=== PATIENT | female | born 1955 | race Caucasian/White ===

== ENCOUNTER 2016-12-24 12:57 | Outpatient (CLI) | payer MEDICARE, BC ==
--- NOTE | 2016-12-24 14:36 | RAD ---
LUMBAR SPINE RADIOGRAPHS 3 VIEWS: DATE: 12/24/16. PROVIDED CLINICAL HISTORY: Lumbar radiculopathy. FINDINGS: Five jhv-[id number]-[id number] lumbar-type vertebral bodies are noted. There is trace retrolisthesis of L2 on L3. This reduces in flexion and increases in extension. There is minimal retrolisthesis of L3 on L4 which does not appear to change with flexion and extension. Lumbar alignment appears otherwise n ormal. Bilateral pedicle screws and radiolucent vertical interconnecting rods span L3-4. Changes o f posterior fusion are seen at L4-5 with fusion across the disk space also seen. Vertebral body hei ghts appear preserved. Disk space narrowing is seen at L3-4. There is no evidence for hardware loo sening or migration. A dorsal column stimulator device is seen. IMPRESSION: Postoperative changes involving the lumbar spine as described above. POS: [facility]
--- NOTE | 2016-12-24 15:57 | CT ---
CT LUMBAR SPINE: HISTORY: A 61-year-old with a history of low back pain. COMPARISON: 11/15/2014 TECHNIQUE: Axial images are obtained with coronal and sagittal reconstructions. FINDINGS: T11-T12: Unremarkable. T12-L1: Unremarkable. There is a dorsal column stimulator, which enters the T12 and L1 interlaminar space. L1-L2: There is some disk space height loss. A broad-based disk bulge is seen. Bilateral facet an d ligamentum flavum hypertrophy is seen. This results in mild to moderate central and lateral reces s stenosis. The neural foramen are patent. L2-L3: There is some disk desiccation seen. Bilateral facet and ligamentum flavum hypertrophy is s een. Congenitally short pedicles are seen. There is a mild broad-based disk bulge seen. This over all results in moderate to severe L2-L3 spinal stenosis. L3: Bilateral pedicle screws are seen at the L3 level. L3-L4: Some disk space height loss is seen. There is a broad-based disk bulge with bilateral facet and ligamentum flavum hypertrophy resulting in a moderate degree of L3-L4 central and lateral reces s stenosis. L4-L5: The patient has had a previous L4 laminectomy. Pedicle screws have been removed at the L5 l evel. No significant evidence of bony spinal stenosis seen. Post surgical changes seen in the cent ral canal, at L4-L5. No definite evidence of neural foraminal narrowing is seen. Posterior lateral masses, which are fused, are visualized. L5-S1: The patient has had a previous left L5 laminotomy. The central canal was patent. The neura l foramen are also patent. No significant interval changes seen since the previous comparison CT fr om 2014. IMPRESSION: Multilevel lower lumbar fusion with central stenosis and facet hypertrophy at L2-L3 and at L3-L4. 1. POS: [facility]
== END 2016-12-24 12:58 | disposition home or self-care (01) ==
LOC: TBSIIMAG 12:57
PROVIDERS: ATTEND Neurological Surgery
DX: M54.16 Radiculopathy, lumbar region (principal); M43.26 Fusion of spine, lumbar region; M48.06 Spinal stenosis, lumbar region; Z98.1 Arthrodesis status
CPT/HCPCS: 72100; 72131

== ENCOUNTER 2017-03-26 10:33 | Outpatient (CLI) | payer MEDICARE, BC | END 2017-03-26 10:34 | disposition home or self-care (01) | LOC: LABBT 10:33 | PROVIDERS: ATTEND Neurological Surgery | DX: Z01.818 Encounter for other preprocedural examination (principal); M48.061 Spinal stenosis, lumbar region without neurogenic claudication | CPT/HCPCS: 93005; 93010 ==

== ENCOUNTER 2017-03-31 06:24 | Day surgery (SDC) | payer MEDICARE, BC ==
--- NOTE | 2017-03-31 01:03 | HP ---
HISTORY OF PRESENT ILLNESS: Ms. Gamboa is a 61-year-old woman known to us from previous ACD[facility] this year who returns now with severe lower back pain, buttock pain and hip pains with this onset roughly 4 months ago now. She has been treating this with over the counter pain medications with min imal relief and then ultimately had a single injection with Dr. Sethi which did not provide muc h relief either. She does have known several previous lumbar spine surgeries, most recently L4-L5 __ ___ with Dr. Villalpando that was placed in 2010. We are going to repeat CT scan that shows profound ad jacent level stenosis at L2-L3, that is very much the likely culprit of her symptoms. At this point, she would like to move forward with anything that is going to give her relief. PAST MEDICAL HISTORY: Significant for migraine headaches, gastroesophageal reflux, hypothyroidism, h yperlipidemia, anxiety, and back pain. CURRENT MEDICATIONS: Calcium, magnesium, Nexium, Synthroid, Vytorin, Flexeril, losartan, vitamin D, metoprolol, gabapentin. ALLERGIES: TETRACYCLINE, TRAMADOL, and ADHESIVE TAPE. PHYSICAL EXAMINATION: PSYCHIATRIC: Patient is alert and oriented x3. EXTREMITIES: She has tenderness over the bilateral SI joints. Straight leg raise is positive in lef t lower extremity and negative in right lower extremity. Gait is mildly antalgic. ASSESSMENT: Lumbar stenosis with neurogenic claudication. PLAN: Dr. Prieto met with the patient, reviewed imaging and ultimately advocated for L2-L3 decompress ion. He explained to the patient the risks, benefits, and alternatives to the procedure. The patien t expressed understanding and would like to move forward with surgery as discussed. I do believe the patient is mentally competent and capable of making decisions for herself and we will move forward w ith surgery as planned. Nino Fernando PA-C, dictating for Saravanan Prieto M.D.
[2017-03-31] MEDS ORDERED: CEFAZOLIN/Water 2 GM/20 ML SYRINGE ONE ×2 (06:39→13:36)
[2017-03-31] MEDS ORDERED: Sodium Chloride 0.9% 0 ML ONE (07:03)
[2017-03-31] MEDS ORDERED: Bupivacaine/Epinephrine 0.25% 30 ML VIAL ONE (07:03)
[2017-03-31] MEDS ORDERED: Thrombin 5000 UNITS/5 ML VIAL ONE (07:03)
[2017-03-31] MEDS ORDERED: Scopolamine 1.5 mg/72 hour Patch ONE (07:35)
[2017-03-31] MEDS ORDERED: Midazolam HCl 2 mg/2 ml Vial ONE (07:35)
[2017-03-31] MEDS ORDERED: Fentanyl 250 MCG/5 ML VIAL ONE (08:09)
[2017-03-31] MEDS ORDERED: Fentanyl 100 MCG/2 ML VIAL ONE (09:52)
--- NOTE | 2017-03-31 10:57 | OP ---
DATE OF OPERATION: 03/31/2017 SURGEON: Saravanan Prieto M.D. PARTY COORDINATOR: Supa Fernando PA-C. INDICATION: Pain. DIAGNOSIS: Lumbar stenosis. PROCEDURE: L2-L3 lumbar decompression. ANESTHESIA: General. TECHNIQUE: The patient was brought into the operating room and placed under general anesthesia. She was flipped from a supine to a prone position on the operating room table. A linear incision was pl anned over the L2-L3 segment. After prepping and draping and after an appropriate operative pause, t he incision was created. Soft tissues were swept away from midline. A self-retaining retractor was placed under the wound for optimal exposure. After confirming the appropriate level with C-arm fluor oscopy, an Adson rongeur was used to remove the spinous process along the inferior aspect of L2 and s uperior aspect of L3. A high-speed cutting drill bit as well as 2, 3, and 4-mm Kerrisons were then u sed to perform a laminectomy in order to decompress the central canal and lateral recesses. After co mplete decompression, the wound was irrigated. Hemostasis was maintained throughout. The wound was then closed in anatomic layers and a pressure dressing was applied. There were no known procedural c omplications.
[2017-03-31] MEDS ORDERED: Acetaminophen/Codeine 30-300mg Tablet ONE (11:15)
[2017-03-31] MEDS ORDERED: Ondansetron HCl/PF 4 MG/2 ML Vial ONE (13:03)
[2017-03-31] MEDS ORDERED: Glycopyrrolate 0.2 MG/ML 5 ML SYRINGE ONE (13:03)
[2017-03-31] MEDS ORDERED: Dexamethasone 20 MG/5 ML VIAL ONE (13:03)
[2017-03-31] MEDS ORDERED: PHENYLEPHRINE-NS 100 MCG/ML 10 ML SYRINGE ONE (13:03)
[2017-03-31] MEDS ORDERED: PROPOFOL 200 MG/20 ML VIAL ONE (13:03)
[2017-03-31] MEDS ORDERED: ePHEDrine/0.9% NaCl/PF SYRINGE 50 mg/10 ml ONE (13:03)
== END 2017-03-31 13:50 | disposition home or self-care (01) ==
LOC: SDC 06:24
PROVIDERS: ATTEND Neurological Surgery
PROC: 0ST20ZZ Resection of Lumbar Vertebral Disc, Open Approach (ICD-10-PCS; principal; 2017-03-31)
PROC: 00NY0ZZ Release Lumbar Spinal Cord, Open Approach (ICD-10-PCS; 2017-03-31)
DX: M48.061 Spinal stenosis, lumbar region without neurogenic claudication (principal); G43.909 Migraine, unspecified, not intractable, without status migrainosus; K21.9 Gastro-esophageal reflux disease without esophagitis; E03.9 Hypothyroidism, unspecified; E78.5 Hyperlipidemia, unspecified; F41.9 Anxiety disorder, unspecified; Z88.1 Allergy status to other antibiotic agents; Z88.5 Allergy status to narcotic agent; Z91.040 Latex allergy status; Z91.048 Other nonmedicinal substance allergy status; Z79.899 Other long term (current) drug therapy; Z98.1 Arthrodesis status
CPT/HCPCS: 76001; 96374; A4216; J1100; J2250; J2405; J2704; J3010

== ENCOUNTER 2017-07-01 13:40 | Outpatient (CLI) | payer MEDICARE, BC ==
--- NOTE | 2017-07-01 15:50 | CT ---
CT OF THE CERVICAL SPINE WITHOUT CONTRAST: INDICATION: Cervical radiculopathy with numbness in the right fingers. TECHNIQUE: Multiple CT images were obtained in the cervical spine without contrast. COMPARISON: CT myelogram dated 11/28/15. FINDINGS: Since the comparison examination, there has been interval performance of an ACDF spanning C6-C7. No appreciable loosening is grossly evident. The intervertebral cage projects in the expected position. Osseous central canal is preserved. No acute fracture or subluxation is noted. There is uncovertebral hypertrophy, particularly at C6-7, inducing at least moderate right osseous ne ural foraminal narrowing. This appears slightly more prominent than on the comparison examination. No additional area of osseous central canal or neural foraminal narrowing is evident. Lung apices are clear. Prevertebral soft tissues appear within normal limits. A few shotty-appearin g lymph nodes are seen within the soft tissues of the neck. The craniocervical junction appears with in normal limits. IMPRESSION: Postsurgical change of an anterior cervical diskectomy and fusion. There is interval development of some prominent uncovertebral hypertrophy on the right at C6-7 inducing at least moderate right osseou s neural foraminal narrowing. POS: [facility]
== END 2017-07-01 13:41 | disposition home or self-care (01) ==
LOC: TBSIIMAG 13:40
PROVIDERS: ATTEND Neurological Surgery
DX: M50.123 Cervical disc disorder at C6-C7 level with radiculopathy (principal); M99.81 Other biomechanical lesions of cervical region; Z98.1 Arthrodesis status
CPT/HCPCS: 72125

== ENCOUNTER 2017-08-27 06:47 | Day surgery (SDC) | payer MEDICARE, BC ==
[2017-08-27 07:44] VITALS: BP 145/97; TEMP 97.2
[2017-08-27] MEDS ORDERED: Ondansetron ODT 4 MG TAB ONE (08:55)
--- NOTE | 2017-08-27 10:32 | RAD ---
CERVICAL MYELOGRAM: HISTORY: Cervical radiculopathy. COMPARISON: 11/28/15. EXPOSURE: 0.7 minutes, 642.7 mGy*^m2. FINDINGS: Cervical spine radiograph demonstrates a cervical plate with transvertebral body screw at C6 and C7. No perihardware lucency. There is a prosthesis at C6-C7 disk space. Vertebral body height is maint ained. No fracture. Straightening of cervical cervical lordosis is noted. On the AP projection, th ere are degenerative changes of facets. TWO VIEWS LUMBAR SPINE KNURLING MACHINE TENDER RADIOGRAPH: There are bilateral transpedicular screws at L3 and L4. There are posterior changes with bone graft material at L4-L5 and L5-S1. There is fusion of the L4-L5 disk space. There is 2 mm of retrolisthes is of L2 upon L3 and 3 mm of retrolisthesis of L3 upon L4. Dorsal column stimulators are identified. Successful lumbar puncture for intrathecal contrast administration. A total of 9 cc of Isovue 300M c ontrast was administered intrathecally. The patient tolerated the procedure well. No immediate or p ostprocedure complication. TECHNIQUE: Consent was obtained to perform a lumbar puncture for a cervical myelogram. The patient's back was e valuated. The L1-L2 level was deemed appropriate. The skin was prepped and draped in sterile fashio n. 1% Lidocaine, buffered with sodium bicarbonate was used for local anesthesia. Under fluoroscopic guidance, a 22-gauge spinal needle was advanced into the CSF space. A total of 9 cc of Isovue 300M contrast was administered intrathecally. The patient tolerated the procedure well. No immediate or postprocedure complication. IMPRESSION: Technically successful lumbar puncture for intrathecal contrast administration. Please refer to post myelogram cervical spine CT for further detail. POS: [facility]
--- NOTE | 2017-08-27 11:10 | CT ---
POST MYELOGRAM CERVICAL SPINE CT: HISTORY: Cervical radiculopathy. Interval cervical fusion. COMPARISON: 11/28/2015 TECHNIQUE: A post myelogram cervical spine CT is performed in the axial plane. Reformatted images are submitted for interpretation. FINDINGS: There are bilateral transpedicular screws at C6 and C7. No perihardware lucency. There is a prosthe sis at the C6-C7 disk space. No spondylolisthesis or spondylosis. Vertebral body heights are mainta ined. No fracture. No prevertebral soft tissue swelling. No epidural hematoma. The visualized soft tissue neck structures, the upper mediastinum, and the lung apices are unremarkab le. C2-C3: No central canal stenosis. The neural foramina are patent. C3-C4: There is a broad-based disk osteophyte complex that abuts the thecal sac. The ventral subara chnoid space is still maintained. There is overall minimal central canal stenosis. There is right f acet hypertrophy. The neural foramina are patent. C4-C5: There is a central disk osteophyte complex that deforms the thecal sac. There is mild deform ity of the cervical cord. Overall mild central canal stenosis. The degree of central canal stenosis has not changed when compared to the previous examination. The neural foramina are patent. C5-C6: A broad-based disk osteophyte complex abuts the thecal sac. There is some flattening of the thecal sac. Minimal deformity of the left and right and hemicord. Mild central canal stenosis. Lef t facet hypertrophy. No significant foraminal stenosis. C6-C7: There is a broad-based disk osteophyte complex. No significant central canal stenosis. The neural foramina are mildly to moderately narrowed bilaterally. C7-T1: No significant disk osteophyte complex. No significant central canal stenosis. The neural f oramina are parent. IMPRESSION: 1. Interval placement of a cervical fusion at C6-C7. 2. No high grade central canal stenosis. 3. No high grade foraminal narrowing. 4. With regard to cervical fusion hardware, no evidence of complication or loosening. POS: [facility]
== END 2017-08-27 10:15 | disposition home or self-care (01) ==
LOC: RAD 06:47
PROVIDERS: ATTEND Neurological Surgery
PROC: B02B1ZZ Computerized Tomography (CT Scan) of Spinal Cord using Low Osmolar Contrast (ICD-10-PCS; principal; 2017-08-27)
DX: M54.12 Radiculopathy, cervical region (principal); Z98.1 Arthrodesis status; Z88.5 Allergy status to narcotic agent; Z91.040 Latex allergy status; Z91.048 Other nonmedicinal substance allergy status; Z79.899 Other long term (current) drug therapy
CPT/HCPCS: 62302; 72126; Q0162

== ENCOUNTER 2017-09-17 10:02 | Outpatient (CLI) | payer MEDICARE, BC | END 2017-09-17 10:03 | disposition home or self-care (01) | LOC: LABBT 10:02 | PROVIDERS: ATTEND Neurological Surgery | DX: Z01.810 Encounter for preprocedural cardiovascular examination (principal); M54.12 Radiculopathy, cervical region | CPT/HCPCS: 93005; 93010 ==

== ENCOUNTER 2017-09-24 05:47 | Day surgery (SDC) | payer MEDICARE, BC ==
[2017-09-17 10:26] VITALS: BMI 29.2
--- NOTE | 2017-09-23 23:28 | HP ---
HISTORY OF PRESENT ILLNESS: Mr. Gamboa is known to us for previous surgeries for lumbar and cervic al problems. She returns now for development of a C6 radiculopathy and she is in the setting of a ne w MRI that reveals adjacent segment disease above her previous C6-C7 ACDF, now at C5-6 causing likely attributing to the symptoms that she is experiencing. She hopes to move forward with surgery if pos sible. PAST MEDICAL HISTORY: Migraine headaches, gastroesophageal reflux, hypothyroidism, hyperlipidemia, a nxiety, and back pain. CURRENT MEDICATIONS: Calcium, magnesium, Nexium, Synthroid, Vytorin, Flexeril, losartan, metoprolol, and gabapentin. ALLERGIES: TETRACYCLINE, TRAMADOL, and ADHESIVES. PHYSICAL EXAMINATION: The patient is alert and oriented x3. Gait is normal, no ataxia. Upper extre mity motor exam is normal. Cervical range of motion is limited. ASSESSMENT: Cervical radiculopathy. PLAN: Dr. Prieto met with the patient, reviewed imaging and advocated for a C5-C6 ACDF. He explained to the patient the risks, benefits, and alternatives to the procedure. The patient expressed unders tanding and would like to move forward with surgery as discussed. I do believe the patient is mental ly competent and capable of making medical decisions for herself and we will move forward with surger y as planned. Nino Fernando PA-C, dictating for Dr. Prieto.
[2017-09-24] MEDS ORDERED: CEFAZOLIN/Water 2 GM/20 ML SYRINGE ONE ×2 (06:16→11:24)
[2017-09-24] MEDS ORDERED: Thrombin 5000 UNITS/5 ML VIAL ONE (06:17)
[2017-09-24] MEDS ORDERED: Midazolam HCl 2 mg/2 ml Vial ONE (06:32)
[2017-09-24] MEDS ORDERED: Fentanyl 100 MCG/2 ML VIAL ONE ×2 (06:33→08:40)
--- NOTE | 2017-09-24 08:59 | OP ---
DATE OF PROCEDURE: 09/24/2017 SURGEON: Saravanan Prieto M.D. MENTAL HEALTH COORDINATOR: HARINI Penny. INDICATION: Pain. DIAGNOSIS: Cervical radiculopathy, cervical spondylolisthesis. PROCEDURE: Removal of anterior instrumentation and anterior cervical diskectomy and fusion, C5-6. ANESTHESIA: General. TECHNIQUE: The patient was brought into the operating room and placed under general anesthesia. She was placed on the table in a supine position. A transverse incision was planned on the lateral aspe ct of the neck on the right. After prepping and draping and after an appropriate operative pause, th e incision was created. The underlying platysma muscles identified and incised. A blunt tissue plan e anterior to the sternocleidomastoid muscle was used to gain access to the prevertebral space. The patient's prior anterior instrumentation was identified and carefully removed. We then redirected ou r attention to the level above at C5-6 where an annulotomy was performed. All disk material as well as anterior and posterior osteophytes were removed. After complete decompression, a 7 mm lordotic PE EK cage packed with allograft and autograft material was placed in the interbody space. An anterior cervical plate was then fashioned in front of the spine and secured with a total of 4 fixed screws. Midline and lateral structures were then inspected and found to be free from significant trauma. The wound was irrigated. Hemostasis was maintained throughout. The wound was then closed in anatomic l wilks and a pressure dressing was applied. The procedure came to an end without complication.
[2017-09-24] MEDS ORDERED: Morphine 4 MG/ML VIAL ONE (09:18)
[2017-09-24] MEDS ORDERED: Ondansetron HCl/PF 4 MG/2 ML Vial ONE (10:34)
[2017-09-24] MEDS ORDERED: ePHEDrine/0.9% NaCl/PF SYRINGE 50 mg/10 ml ONE (10:34)
[2017-09-24] MEDS ORDERED: Lidocaine 1% PF 5 ML VIAL ONE (10:34)
[2017-09-24] MEDS ORDERED: Dexamethasone 20 MG/5 ML VIAL ONE (10:34)
[2017-09-24] MEDS ORDERED: Glycopyrrolate 0.2 MG/ML 5 ML SYRINGE ONE (10:34)
[2017-09-24] MEDS ORDERED: PROPOFOL 200 MG/20 ML VIAL ONE (10:34)
== END 2017-09-24 11:37 | disposition home or self-care (01) ==
LOC: SDC 05:47
PROVIDERS: ATTEND Neurological Surgery
PROC: 0RB30ZZ Excision of Cervical Vertebral Disc, Open Approach (ICD-10-PCS; principal; 2017-09-24)
PROC: 0RG1070 Fusion of Cervical Vertebral Joint with Autologous Tissue Substitute, Anterior Approach, Anterior Column, Open Approach (ICD-10-PCS; 2017-09-24)
PROC: 0RP104Z Removal of Internal Fixation Device from Cervical Vertebral Joint, Open Approach (ICD-10-PCS; 2017-09-24)
DX: M47.22 Other spondylosis with radiculopathy, cervical region (principal); E03.9 Hypothyroidism, unspecified; E78.5 Hyperlipidemia, unspecified; F41.9 Anxiety disorder, unspecified; K21.9 Gastro-esophageal reflux disease without esophagitis; Z88.5 Allergy status to narcotic agent; Z91.040 Latex allergy status; Z79.899 Other long term (current) drug therapy
CPT/HCPCS: 76001; 96374; C1713; C1776; J1100; J2001; J2250; J2270; J2405; J2704; J3010

== ENCOUNTER 2017-11-04 10:04 | Outpatient (CLI) | payer MEDICARE, BC ==
--- NOTE | 2017-11-04 10:31 | RAD ---
CERVICAL SPINE THREE VIEWS: History: Follow up surgery. Comparison: 09-03-16 FINDINGS: Since that examination the plate and screws at the C6-7 level have been removed and there is now a pl ate and screws at C5-6. Markers of disc implants are seen at the C5-6 and C6-7 levels, within the con fines of the disc levels. No soft tissue swelling. Degenerative facet changes are present. IMPRESSION: Post-operative changes of the spine. POS: [facility]
== END 2017-11-04 10:05 | disposition home or self-care (01) ==
LOC: TBSIIMAG 10:04
PROVIDERS: ATTEND Neurological Surgery
DX: M54.12 Radiculopathy, cervical region (principal); Z98.890 Other specified postprocedural states
CPT/HCPCS: 72040

== ENCOUNTER 2017-12-22 08:48 | Outpatient (CLI) | payer MEDICARE, BC ==
--- NOTE | 2017-12-22 10:54 | CT ---
CONTRAST ENHANCED CT IMAGES ABDOMEN AND PELVIS: HISTORY: Left upper quadrant pain. TECHNIQUE: Contrast enhanced CT images of the abdomen and pelvis were obtained after the administration of IV an d oral contrast. FINDINGS: Images demonstrate mid and lower lumbar surgical changes. A dorsal column stimulator is in place. The lung bases are unremarkable. No evidence of free intraperitoneal air is seen. The liver, in hepatic segment 3, and a second lesion noted in hepatic segment 6, contains hypodense a reas. These may represent possible cysts or hepatic masses. Correlation with sonography may be of u se. In addition, the gallbladder contains some areas of hyperdensity in the neck. This may represen t small gallstones in the gallbladder neck or may represent some area of mucosal enhancement. The spleen is unremarkable. Post surgical gastric sleeve changes seen in the stomach. There does appear to be a possible hiatal hernia, also associated with the gastric fundus. The pancreas is unremarkable. The adrenal glands and kidneys are unremarkable. The loops of small b owel are unremarkable. The colon contains a moderate amount of stool. No evidence of periaortic lymphadenopathy is seen. The uterus has been surgically removed. IMPRESSION: 1. Lesions noted in the liver, possibly cysts. Correlate with sonography to confirm. 2. Possible gallbladder neck calculi. Begin correlation with sonography recommended. 3. Hiatal hernia with gastric surgical changes. POS: [facility]
[2017-12-22] MEDS ORDERED: ISOVUE-370 76%-LOCM 1 ML ONE (14:05)
== END 2017-12-22 08:49 | disposition home or self-care (01) ==
LOC: CT 08:48
PROVIDERS: ATTEND Family Medicine
DX: R10.9 Unspecified abdominal pain (principal); R11.0 Nausea; K76.9 Liver disease, unspecified; K44.9 Diaphragmatic hernia without obstruction or gangrene; Z98.890 Other specified postprocedural states
CPT/HCPCS: 74177; 82565

== ENCOUNTER 2017-12-29 10:37 | Outpatient (CLI) | payer MEDICARE, BC ==
--- NOTE | 2017-12-29 13:47 | ULT ---
RIGHT UPPER QUADRANT ULTRASOUND: Date: 12/29/17 HISTORY: Abdominal pain. FINDINGS: There is a 1.5 x 1.3 x 1.5 cm echogenic lesion in the left lobe of the liver suspicious for hemangiom a. No intra or extrahepatic biliary ductal dilatation is seen. The common duct measures 4.0 mm in jovanny meter. The right kidney and visualized portions of the pancreas (tail not visualized) are normal. Mul tiple mobile echogenic foci without shadowing are seen in the gallbladder. No gallbladder wall thicke grant or pericholecystic fluid is seen. No free fluid is seen in Morison's pouch. IMPRESSION: 1. Gallbladder sludge versus nonshadowing calculi. 2. Probable hemangioma of the left lobe of the liver (1.5 x 1.3 x 1.5 cm). Confirmation with technet ium-99m labeled RBC scan is recommended. POS: [facility]
== END 2017-12-29 10:38 | disposition home or self-care (01) ==
LOC: SCSULT 10:37
PROVIDERS: ATTEND Family Medicine
DX: R10.84 Generalized abdominal pain (principal)
CPT/HCPCS: 76705

== ENCOUNTER 2019-08-03 12:58 | Outpatient (CLI) | payer MEDICARE, BC ==
--- NOTE | 2019-08-03 13:47 | CT ---
Exam: Lumbar spine CT without contrast Comparison 12/24/2016 HISTORY: Lumbar radiculopathy. Previous lumbar fusion. Back pain x3-4 weeks. Radiation of pain down t o the thighs FINDINGS: 5 lumbar type vertebra. Lumbar spine vertebral body height is maintained. There is no fracture. There are bilateral transpedicular screws at L3 and L4 without perihardware lucency. There is extensive bone graft material in the posterior elements starting at the L3 level and extending to the L5 level. There is a prosthetic disc at the L4-L5 disc space. Visualized solid organs do not demonstrate any acute abnormality. Bariatric surgical changes are note d. Visualized canal is grossly unremarkable. Symmetric attenuation of the paraspinal muscles. Symmetric atrophy of the posterior paravertebral mus cles. Dorsal column stimulator enters the thecal sac at the T12-L1 disc space. There does not appear to be an associated generator. Limited evaluation of the contents of the central spinal canal and neural foramina due to technique Spondylolisthesis: 3.3 mm of retrolisthesis of L4 to upon L3, 3.0 mm retrolisthesis of L3 upon L4 There are tracks from previous bilateral transpedicular screws at L5 and S1. T11-T12: Mild central canal stenosis. Patent neural foramina T12-L1: No significant central canal stenosis. Patent neural foramina L1-L2: Broad-based disc bulge abuts the thecal sac. No significant central canal stenosis. Neural for perez are mildly narrowed due to disc material L2-L3: Posterior laminectomy defect. Broad-based disc bulge with at least mild central canal stenosis . Moderate bilateral foraminal narrowing. L3-L4: Broad-based disc bulge, facet hypertrophy result in moderate central canal stenosis. Moderate bilateral neural foraminal narrowing L4-L5: Disc prosthesis. Abnormal soft tissue attenuation at the laminectomy defect site which is pres umed to represent scar tissue. No evidence of high-grade thecal sac stenosis. Mild bilateral foraminal narrowing. L5-S1: Broad-based disc osteophyte complex abuts the thecal sac. Encroachment upon bilateral traversi ng S1 nerve roots. Mild to moderate bilateral neural foraminal narrowing. IMPRESSION: 1. Stable fusion changes of the lumbar spine. 2. Varying degrees of central canal stenosis and neural foraminal narrowing as detailed above. Transcribed Date/Time: 08/03/2019 2:03 PM
== END 2019-08-03 12:59 | disposition home or self-care (01) ==
LOC: TBSIIMAG 12:58
PROVIDERS: ATTEND Neurological Surgery
DX: M54.16 Radiculopathy, lumbar region (principal); M48.07 Spinal stenosis, lumbosacral region; M48.061 Spinal stenosis, lumbar region without neurogenic claudication; Z98.1 Arthrodesis status
CPT/HCPCS: 72131

== ENCOUNTER 2019-08-16 07:21 | Day surgery (SDC) | payer MEDICARE, BC ==
[2019-08-15 15:17] VITALS: BMI 23.3
[2019-08-16 08:01] VITALS: BP 129/93; TEMP 97.8
--- NOTE | 2019-08-16 09:45 | CT ---
CT lumbar spine with contrast: (CT lumbar myelogram) DATE: 08/16/2019 HISTORY: 64-year-old female with low back pain and bilateral lumbar radiculopathy. COMPARISON: Noncontrast CT of 08/03/2019 FINDINGS: In keeping with the designation of levels on the previous report, the level at the thoracolumbar junc tion with hypoplastic bilateral ribs will be designated as T12. This is followed by 5 lumbar-type vertebrae. Minimal chronic anterior wedging of T12, L1, and L2. Otherwise vertebral body heights are maintained. Conus medullaris terminates at lower L1 level. Cauda equina is arranged in a symmetrical distribution throughout the thecal sac. Diffuse osteopenia. Atrophy of posterior paraspin al musculature from approximately L4-5 through sacral levels. Dorsal column stimulator leads enter posterior epidural space at T12-L1, and ascending. Bilateral pedicle screws at L3 and L4. No signs of hardware loosening. Interbody graft material at L4-5 disc space with successful ankylosis. Posterior element onlay bone graft fusion with successful ankylosis from L3-4 throughout L5-S1. Midline laminectomy defect resulting in generous caliber of spinal canal at L4-5. T11-12: Tiny left paracentral disc protrusion abuts the left ventral surface of spinal cord. No centr al or neural foraminal stenosis. No high-grade disc space narrowing. T12-L1: Essentially normal. L1-2: Mild disc bulge. Minimal retrolisthesis of L1 on L2. Mild to moderate central spinal canal sten osis. Mild to moderate bilateral neural foraminal stenosis. No significant interval change. L2-3: Moderate disc space narrowing. Grade 1 Retrolisthesis of L2 on L3. Diffuse disc bulge. Old midl ine laminectomy change, but with overgrowth of bone. Mild central spinal canal stenosis. Moderate bilateral neural foraminal stenosis. At least mild bilateral facet DJD. No significant interval savage e. L3-4: Retrolisthesis of L3 on L4. Moderate disc space narrowing. Mild to moderate facet DJD the with moderate bony facet hypertrophy. Mild to moderate central spinal canal stenosis. Moderate bilateral neural foraminal stenosis, greater than at the L2-3 level. No major interval change. L4-5: Generous caliber of thecal sac and neural foramina. No interval change. L5-S1: No central or neural foraminal stenosis. Mild to moderate disc space narrowing. Mild to modera te bilateral lateral recess stenosis, left greater than right, due to facet osteophytes. Old laminectomy defect. No interval change. IMPRESSION: 1. Status post posterior lumbar interbody fusion and laminectomy at L4-5 and L5-S1, with successful a nkylosis of posterior element onlay bone graft fusion, and successful ankylosis of the L4 and L5 vertebral bodies. 2. Multilevel mild to moderate degenerative disc disease at several levels superior to L4, with varyi ng degrees of low-grade central spinal canal stenosis. 3. No severe central spinal canal stenosis at any level. 4. Moderate bilateral neural foraminal stenosis at L2-3 and especially L3-4. 5. Dorsal column spinal cord stimulator. 6. Diffuse osteopenia. 7. No major interval change detected compared to noncontrast CT of 08/03/2019.
--- NOTE | 2019-08-16 10:37 | RAD ---
MYELOGRAM LUMBAR: DATE: 08/16/2019 HISTORY: 64-year-old female with low back pain and bilateral lumbar radiculopathy. TECHNIQUE: Signed informed consent obtained. Patient placed prone on fluoroscopy table. Skin of lower back prepa red and draped in usual sterile fashion. 25-gauge needle used to apply buffered lidocaine superficially and deeply. Level selected:L4. Approach:midline. Through laminectomy defect. 22-gauge spinal needle advanced into spinal canal under brief, intermittent fluoroscopy. Upon return of clear CSF, 10 mL Isovue [id number] media was injected into the intrathecal space. Spinal needle was removed. Patient tolerated procedure well. No complications. Total fluoroscopy time:0.7 minutes. Dose area product:41.2 uGy*m^2. FINDINGS: Midline laminectomy defect at L4-5. Hypoplastic T12 ribs. Bilateral pedicle screws without metallic i nterlocking rods at L3 on L4. Successful ankylosis of bilateral onlay posterior element bone graft fusion from L4 through S1. No scoliosis. Spinal cord stimulator. Postinjection images demonstrate goo d distribution of intrathecal contrast. IMPRESSION: Postsurgical changes of the lumbar spine. See separate report of subsequent CT lumbar myelogram.
[2019-08-16] MEDS ORDERED: Iopamidol-M 200 41% 20 ML VIAL ONE (10:42)
== END 2019-08-16 09:30 | disposition home or self-care (01) ==
LOC: RAD 07:21 → EDSTATUS 08:00 → RAD 09:30
PROVIDERS: ATTEND Neurological Surgery
PROC: B02B1ZZ Computerized Tomography (CT Scan) of Spinal Cord using Low Osmolar Contrast (ICD-10-PCS; principal; 2019-08-16)
DX: M51.16 Intervertebral disc disorders with radiculopathy, lumbar region (principal); M48.061 Spinal stenosis, lumbar region without neurogenic claudication; M85.88 Other specified disorders of bone density and structure, other site; I10 Essential (primary) hypertension; E03.9 Hypothyroidism, unspecified; E78.5 Hyperlipidemia, unspecified; K21.9 Gastro-esophageal reflux disease without esophagitis; Z79.899 Other long term (current) drug therapy; Z88.1 Allergy status to other antibiotic agents; Z88.5 Allergy status to narcotic agent; Z91.040 Latex allergy status; Z91.048 Other nonmedicinal substance allergy status; Z98.1 Arthrodesis status
CPT/HCPCS: 62304; 72132; Q9966

== ENCOUNTER 2019-09-25 06:22 | Outpatient (CLI) | payer MEDICARE, BC, OTHER ==
[2019-09-26 12:20] LABS: SARS-CoV-2 MS2 Positive; SARS-CoV-2 N Gene Negative; SARS-CoV-2 S Gene Negative; SARS-CoV-2 orf1ab Negative
--- NOTE | 2019-09-27 18:01 | EKG ---
Test Reason : PREOP Blood Pressure : / mmHG Vent. Rate : 054 BPM Atrial Rate : 054 BPM P-R Int : 154 ms QRS Dur : 076 ms QT Int : 418 ms P-R-T Axes : 068 036 057 degrees QTc Int : 396 ms Sinus bradycardia Otherwise normal ECG Confirmed by KAILA SCALES (2) on 09/27/2019 6:00:24 PM Referred By: FABY Confirmed By:KAILA SCALES
== END 2019-09-25 06:23 | disposition home or self-care (01) ==
LOC: LABBT 06:22
PROVIDERS: ATTEND Neurological Surgery
DX: Z01.812 Encounter for preprocedural laboratory examination (principal); Z11.59 Encounter for screening for other viral diseases; M54.16 Radiculopathy, lumbar region
CPT/HCPCS: 87635; 93005; 93010; U0003

== ENCOUNTER 2019-09-25 10:15 | Inpatient (IN) | payer MEDICARE, BC ==
[2019-09-22 10:19] VITALS: BMI 23.3
--- NOTE | 2019-09-26 13:28 | HP ---
HISTORY OF PRESENT ILLNESS: Ms. Gamboa is known to us for prior surgical treatment of both neck and lower back problems returning now 5 weeks worth of lower back and bilateral lower extremity pain in the anterior thighs and some into the groin. This has only been within the last couple of weeks. She denies tingling or numbness. Primary care has started her on Medrol and tizanidine with only modest relief. She has a new scan in the form of a myelogram revealing significant foraminal stenosis and likely instability at L3-4, the level adjacent to her prior fusion. This is the most likely culprit in her symptoms. Examination is deferred due to coronavirus [facility] health visit. PAST MEDICAL HISTORY: Significant for hypercholesterolemia, chronic pain syndrome, hypertension, migraines, seasonal allergies. PAST SURGICAL HISTORY: Hysterectomy, lumbar fusion and revision, carpal tunnel release, gastric sleeve, dorsal column stimulator placement, ACDF, hiatal hernia repair. CURRENT MEDICATIONS: 1. Nexium. 2. Synthroid. 3. Effexor. 4. Losartan. 5. Vytorin. 6. Metoprolol. 7. Relpax. ALLERGIES: NO KNOWN DRUG ALLERGIES. ASSESSMENT: Lumbar spinal stenosis and radiculopathy. PLAN: Dr. Prieto met with the patient, reviewed imaging, advocated for exploration and fusion, extension of fusion to L3 and decompression of L3-4 and removal of dorsal column stimulator. He explained to the patient risks, benefits, and alternatives to the procedure. The patient expressed understanding and elected to move forward with surgery as discussed. I do believe the patient is mentally competent and capable of making medical decisions for herself. We will move forward with surgery as planned. Job ID: [id number]
[2019-09-27] MEDS ORDERED: Thrombin 5000 UNITS/5 ML VIAL ONE (06:31)
[2019-09-27] MEDS ORDERED: Bupivacaine PF 0.5% 30 ML VIAL ONE (06:31)
[2019-09-27] MEDS ORDERED: EPINEPHrine 1 MG/ML AMP ONE (06:31)
[2019-09-27] MEDS ORDERED: Midazolam HCl 2 mg/2 ml Vial ONE (06:39)
[2019-09-27] MEDS ORDERED: Fentanyl 100 MCG/2 ML VIAL ONE ×2 (06:39→10:19)
[2019-09-27] MEDS ORDERED: Scopolamine 1.5 mg/72 hour Patch ONE (06:56)
[2019-09-27] MEDS ORDERED: Ondansetron PF 4 MG/2 ML Vial ONE (10:03)
[2019-09-27] MEDS ORDERED: PROPOFOL 200 MG/20 ML VIAL ONE (10:03)
[2019-09-27] MEDS ORDERED: Dexamethasone 20 MG/5 ML VIAL ONE (10:03)
[2019-09-27] MEDS ORDERED: Lidocaine 1% PF 5 ML VIAL ONE (10:03)
[2019-09-27] MEDS ORDERED: EPHEDRINE 25 MG/5 ML SYRINGE ONE (10:03)
[2019-09-27] MEDS ORDERED: Glycopyrrolate 0.2 MG/ML 5 ML SYRINGE ONE (10:03)
[2019-09-27] MEDS ORDERED: Rocuronium Bromide 10 MG/ML (10ML VIAL) ONE (10:03)
[2019-09-27] MEDS ORDERED: Ketorolac Tromethamine 30 MG/ML VIAL ONE (10:03)
[2019-09-27] MEDS ORDERED: HYDROcodone/Acetaminophen 7.5/325 mg Tablet ONE ×3 (11:10→16:47)
--- NOTE | 2019-09-28 12:55 | OP ---
DATE OF PROCEDURE: 09/27/2019 CLAY MILLER: Nino Fernando PA-C INDICATION: Pain. DIAGNOSES: Adjacent segment lumbar stenosis and malfunctioning dorsal column stimulator. PROCEDURES PERFORMED: Removal of dorsal column stimulator, decompression at L3-4 with extension of onlay fusion and exploration of fusion. DESCRIPTION OF PROCEDURE: The patient brought into the operating room and placed under general anesthesia. She was flipped from the supine to prone position on the operating room table. Three incisions were planned, one over the lower lumbar segments and two others corresponding to the location of dorsal column stimulator generator as well as the incision used to place leads. After prepping and draping and after an appropriate preoperative pause, the incisions were opened. The dorsal column stimulator was removed. The soft tissue at the lumbar segment was exposed and the patient's prior hardware was identified. We then explored the area of that fusion and extended decompression up to the level above at L3-L4. I made instrument at this level, but performed an onlay fusion with allograft and autograft. After completing that portion of the procedure, all three wounds were irrigated. Hemostasis was maintained throughout. The wound was then closed in anatomic layers, and a pressure dressing was applied. There were no known procedural complications. Job ID: [id number]
== END 2019-09-27 17:05 | disposition home or self-care (01) | DRG 460 ==
LOC: SURG A 09-27 06:30
PROVIDERS: ADMIT Neurological Surgery; ATTEND Neurological Surgery
PROC: 0SG0071 Fusion of Lumbar Vertebral Joint with Autologous Tissue Substitute, Posterior Approach, Posterior Column, Open Approach (ICD-10-PCS; principal; 2019-09-27)
PROC: 01NB0ZZ Release Lumbar Nerve, Open Approach (ICD-10-PCS; 2019-09-27)
PROC: 00PU0MZ Removal of Neurostimulator Lead from Spinal Canal, Open Approach (ICD-10-PCS; 2019-09-27)
PROC: 0JPT0MZ Removal of Stimulator Generator from Trunk Subcutaneous Tissue and Fascia, Open Approach (ICD-10-PCS; 2019-09-27)
DX: M48.061 Spinal stenosis, lumbar region without neurogenic claudication (principal); T85.118A Breakdown (mechanical) of other implanted electronic stimulator of nervous system, initial encounter; Y83.1 Surgical operation with implant of artificial internal device as the cause of abnormal reaction of the patient, or of later complication, without mention of misadventure at the time of the procedure; M54.16 Radiculopathy, lumbar region; E78.00 Pure hypercholesterolemia, unspecified; G89.4 Chronic pain syndrome; I10 Essential (primary) hypertension; G43.909 Migraine, unspecified, not intractable, without status migrainosus; J30.2 Other seasonal allergic rhinitis; Z98.1 Arthrodesis status; Z90.710 Acquired absence of both cervix and uterus; Z79.899 Other long term (current) drug therapy; Z79.890 Hormone replacement therapy; Z79.1 Long term (current) use of non-steroidal anti-inflammatories (NSAID)
CPT/HCPCS: 76000; C1768; J0171; J0690; J1100; J1885; J2250; J2405; J2704; J3010; S0020

== ENCOUNTER 2020-07-05 12:42 | Outpatient (CLI) | payer MEDICARE, BC | END 2020-07-05 12:43 | disposition home or self-care (01) | LOC: TBSIIMAG 12:42 | PROVIDERS: ATTEND Anesthesiology Pain Medicine | DX: M48.062 Spinal stenosis, lumbar region with neurogenic claudication (principal); M43.16 Spondylolisthesis, lumbar region; Z98.890 Other specified postprocedural states; Z98.1 Arthrodesis status | CPT/HCPCS: 72148 ==

== ENCOUNTER 2020-10-16 10:11 | Emergency (ER) | payer MEDICARE, BC ==
[~2020-10-16 10:11] MED LIST: Iopamidol-370 76% 500 ML 1 ML ONE
[2020-10-16 11:09] LABS: #Basophils 0.1 thou/uL (0.0-0.2); #Eosinphils 0.2 thou/uL (0.0-0.7); #Monocytes 0.5 thou/uL (0.11-0.59); #Neutrophils 1.9 thou/uL (1.40-6.50); %Basophils 1.9 % (0.0-1.0); %Eosinophils 5.1 % (0.0-10.0); %Lymphocytes 42.6 % (21.0-51.0); %Monocytes 10.8 % (0.0-10.0); %Neutrophils 39.7 % (42.0-75.0); Hemoglobin 13.2 g/dL (12.0-16.0); Mean Corpuscular HGB CONC 31.9 g/dL (32.0-36.0); Mean Corpuscular Volume 84.6 fL (78.0-98.0); Platelet Count 218 thou/uL (130-400); White Blood Cell (WBC) Count 4.8 thou/uL (4.8-10.8)
[2020-10-16 11:19] LABS: ALT (SGPT) 12 U/L (8-55); AST (SGOT) 19 U/L (5-34); Albumin 4.1 g/dL (3.4-4.8); Alkaline Phosphatase 65 U/L (40-110); Anion Gap 9 mmol/L (10-20); BUN (Urea Nitrogen) 12 mg/dL (9.8-20.1); Bilirubin, Total 0.9 mg/dL (0.2-1.2); Calc. Creatinine Clearance 0 mL/min (70-130); Calcium 9.5 mg/dL (7.8-10.44); Carbon Dioxide 27 mmol/L (23-31); Chloride 107 mmol/L (98-107); Globulin 3.1 g/dL (2.4-3.5); Glucose 107 mg/dL (80-115); Lipase 23 U/L (8-78); Potassium 3.5 mmol/L (3.5-5.1); Protein, Total 7.2 g/dL (5.8-8.1); Sodium 139 mmol/L (136-145)
[2020-10-16] MEDS ORDERED: Ondansetron PF 4 MG/2 ML Vial ONE (11:23)
[2020-10-16 11:39] LABS: Bilirubin Negative (Negative); Blood, Urine Negative (Negative); Clarity Turbid (Clear); Glucose, Urine (Dipstick) Normal (Negative); Ketone, Urine Negative (Negative); Leukocyte Negative Leu/uL (Negative); Nitrite Negative (Negative); Protein, Urine (Dipstick) 10 mg/dL (Neg-Trace); Specific Gravity, Urine 1.023 (1.002-1.036); Urobilinogen 3 mg/dL (Less than 2)
[2020-10-16] MEDS ORDERED: diphenhydrAMINE 50 MG/ML VIAL ONE (13:28)
[2020-10-16] MEDS ORDERED: methylPREDNISolone Sod Succ/PF 125 MG/2 ML VIAL ONE (13:28)
== END 2020-10-16 16:04 | disposition home or self-care (01) ==
LOC: ERS 10:11
DX: K44.9 Diaphragmatic hernia without obstruction or gangrene (principal); K76.89 Other specified diseases of liver; R91.1 Solitary pulmonary nodule
CPT/HCPCS: 36415; 74177; 76705; 80053; 81003; 83690; 85025; 96374; 96375; J1200; J2405; J2930; Q9967

== ENCOUNTER 2021-01-31 10:55 | Outpatient (CLI) | payer MEDICARE, BC ==
[2021-01-31 23:48] LABS: SARS-CoV-2 PCR by NAA Not Detected (NotDetected)
== END 2021-01-31 10:56 | disposition home or self-care (01) ==
LOC: LABBT 10:55
PROVIDERS: ATTEND Anesthesiology Pain Medicine
DX: Z01.818 Encounter for other preprocedural examination (principal); Z20.822 Contact with and (suspected) exposure to COVID-19
CPT/HCPCS: 93005; U0003; U0005; 93010

== ENCOUNTER 2021-02-05 10:28 | Day surgery (SDC) | payer MEDICARE, BC ==
[2021-02-04 10:37] VITALS: BMI 21.6
[2021-02-05] MEDS ORDERED: CEFAZOLIN 1 GM VIAL ONE (10:46)
[2021-02-05] MEDS ORDERED: Sodium Chloride 0.9% 100 ML ONE (10:46)
[2021-02-05] MEDS ORDERED: Fentanyl 100 MCG/2 ML VIAL ONE (11:56)
[2021-02-05] MEDS ORDERED: Midazolam HCl 2 mg/2 ml Vial ONE (12:13)
[2021-02-05] MEDS ORDERED: Propofol 500 MG/50 ML VIAL ONE (12:13)
[2021-02-05] MEDS ORDERED: EPINEPHrine 1 MG/ML AMP ONE (12:20)
[2021-02-05] MEDS ORDERED: Lidocaine 2% PF 5 ML VIAL ONE (12:20)
[2021-02-05] MEDS ORDERED: Bupivacaine PF 0.5% 30 ML VIAL ONE (12:20)
[2021-02-05] MEDS ORDERED: PROPOFOL 200 MG/20 ML VIAL ONE (13:00)
== END 2021-02-05 14:54 | disposition home or self-care (01) ==
LOC: SDC 10:28
PROVIDERS: ATTEND Anesthesiology Pain Medicine
PROC: 0JH70DZ Insertion of Multiple Array Stimulator Generator into Back Subcutaneous Tissue and Fascia, Open Approach (ICD-10-PCS; principal; 2021-02-05)
PROC: 00HU3MZ Insertion of Neurostimulator Lead into Spinal Canal, Percutaneous Approach (ICD-10-PCS; 2021-02-05)
DX: M96.1 Postlaminectomy syndrome, not elsewhere classified (principal); G89.4 Chronic pain syndrome; M54.16 Radiculopathy, lumbar region; I10 Essential (primary) hypertension; E78.5 Hyperlipidemia, unspecified; E03.9 Hypothyroidism, unspecified; K21.9 Gastro-esophageal reflux disease without esophagitis; Z79.899 Other long term (current) drug therapy; Z88.1 Allergy status to other antibiotic agents; Z88.5 Allergy status to narcotic agent; Z91.040 Latex allergy status; Z91.041 Radiographic dye allergy status; Z91.048 Other nonmedicinal substance allergy status
CPT/HCPCS: 63650 ×2; 63685; 72020; C1767; 76000; J0171; J0690; J2001; J2250; J2704; J3010; J3490; S0020

== ENCOUNTER 2022-08-10 09:13 | Outpatient (CLI) | payer MEDICARE, BC | END 2022-08-10 09:14 | disposition home or self-care (01) | LOC: ULT 09:13 | PROVIDERS: ATTEND Family Medicine | DX: K76.9 Liver disease, unspecified (principal) | CPT/HCPCS: 76705 ==

== ENCOUNTER 2022-09-08 10:01 | Outpatient (CLI) | payer MEDICARE, BC | END 2022-09-08 10:02 | disposition home or self-care (01) | LOC: SCSMRI 10:01 | PROVIDERS: ATTEND Nurse Practitioner Family | DX: M51.34 Other intervertebral disc degeneration, thoracic region (principal); M51.14 Intervertebral disc disorders with radiculopathy, thoracic region | CPT/HCPCS: 72146 ==

== ENCOUNTER 2022-11-12 08:43 | Outpatient (CLI) | payer MEDICARE, BC | END 2022-11-12 08:44 | disposition home or self-care (01) | LOC: NM 08:43 | PROVIDERS: ATTEND Nurse Practitioner Family | DX: M54.9 Dorsalgia, unspecified (principal); R93.89 Abnormal findings on diagnostic imaging of other specified body structures | CPT/HCPCS: 78306; A9503 ==

== ENCOUNTER 2023-03-19 13:31 | Outpatient (CLI) | payer MEDICARE, BC | END 2023-03-19 13:32 | disposition home or self-care (01) | LOC: BICRAD 13:31 | PROVIDERS: ATTEND Anesthesiology Pain Medicine | DX: M43.16 Spondylolisthesis, lumbar region (principal); Z98.890 Other specified postprocedural states | CPT/HCPCS: 72120 ==

== ENCOUNTER 2023-03-26 11:15 | Emergency (ER) | payer MEDICARE, BC ==
[2023-03-26] MEDS ORDERED: diphenhydrAMINE 50 MG/ML VIAL ONE (11:50)
[2023-03-26] MEDS ORDERED: Metoclopramide HCl 10 MG (2 mL) VIAL ONE (11:51)
[2023-03-26] MEDS ORDERED: Ketorolac Tromethamine 30 MG (1 mL) VIAL ONE ×2 (11:51→11:54)
[2023-03-26] MEDS ORDERED: methylPREDNISolone Sod Succ/PF 125 MG/2 ML VIAL ONE (11:51)
== END 2023-03-26 13:30 | disposition home or self-care (01) ==
LOC: ERS 11:15
DX: R51.9 Headache, unspecified (principal); I10 Essential (primary) hypertension
CPT/HCPCS: 96365; 96375; J1200; J1885; J2765; J2930

== ENCOUNTER 2023-11-29 13:45 | Emergency (ER) | payer MEDICARE, BC ==
[2023-11-29] MEDS ORDERED: Iopamidol-370 76% 500 ML MDV (1 ML CHARGE) ONE (15:24)
[2023-11-29 15:53] LABS: #Basophils 0.05 10x3/uL (0.0-0.2); %Eosinophils 3.8 % (0.0-10.0); %Lymphocytes 37.4 % (21.0-51.0); %Monocytes 8.2 % (0.0-10.0); %Neutrophils 49.4 % (42.0-75.0); Hematocrit 40.5 % (36.0-47.0); Hemoglobin 13.1 g/dL (12.0-16.0); Mean Corpuscular HGB CONC 32.3 g/dL (32.0-36.0); Mean Corpuscular Hemoglobin 29.7 pg (27.0-31.0); Mean Corpuscular Volume 91.8 fL (78.0-98.0); Mean Platelet Volume 9.8 fL (7.4-10.4); Platelet Count 245 10x3/uL (130-400); RBC Distribution Width 13.4 % (11.5-14.5); Red Blood Cell (RBC) Count 4.41 mill/uL (4.20-5.40)
[2023-11-29 16:14] LABS: Troponin I Less than 0.010 ng/mL (< 0.028)
[2023-11-29 16:15] LABS: ALT (SGPT) 14 U/L (8-55); AST (SGOT) 22 U/L (5-34); Albumin 3.3 g/dL (3.4-4.8); Alkaline Phosphatase 102 U/L (40-110); Anion Gap 11 mmol/L (10-20); BUN (Urea Nitrogen) 9 mg/dL (9.8-20.1); Bilirubin, Total 0.5 mg/dL (0.2-1.2); Calc. Creatinine Clearance 0 mL/min (70-130); Calcium 8.9 mg/dL (7.8-10.44); Carbon Dioxide 25 mmol/L (23-31); Chloride 107 mmol/L (98-107); Estimated GFR 95; Globulin 3.6 g/dL (2.4-3.5); Glucose 94 mg/dL (80-115); Potassium 3.7 mmol/L (3.5-5.1); Protein, Total 6.9 g/dL (5.8-8.1); Sodium 139 mmol/L (136-145)
[2023-11-29] MEDS ORDERED: Morphine 4 MG/ML VIAL ONE (16:41)
[2023-11-29] MEDS ORDERED: Ondansetron PF 4 MG/2 ML Vial ONE (16:47)
[2023-11-29] MEDS ORDERED: diphenhydrAMINE 50 MG/ML VIAL ONE (18:21)
[2023-11-29] MEDS ORDERED: methylPREDNISolone Sod Succ 40 MG VIAL ONE (18:21)
[2023-11-29] MEDS ORDERED: Famotidine/PF 20 mg/2ml Vial ONE (18:22)
== END 2023-11-29 23:20 | disposition home or self-care (01) ==
LOC: ERS 13:45
DX: R07.81 Pleurodynia (principal); G89.18 Other acute postprocedural pain; I10 Essential (primary) hypertension
CPT/HCPCS: 71046; 71275; 80053; 83880; 84484; 85025; 85379; 93005; J1200; J2272; J2405; J2919; J3490; Q9967; 36415; 96374; 96375

== ENCOUNTER 2024-05-08 13:22 | Outpatient (CLI) | payer MEDICARE, BC ==
[2024-05-08] MEDS ORDERED: 0.9 % Sodium Chloride 20 ML, Lidocaine 1% PF 5 ML, Iopamidol 5 ML, EPINEPHrine 0.1 MG FS SCH (13:30)
[2024-05-08] MEDS ORDERED: Sodium Bicarbonate 2.5 MEQ/5 ML SDV ONE (13:48)
== END 2024-05-08 13:23 | disposition home or self-care (01) ==
LOC: RAD 13:22
PROVIDERS: ATTEND Orthopaedic Surgery
DX: M75.101 Unspecified rotator cuff tear or rupture of right shoulder, not specified as traumatic (principal); S43.431A Superior glenoid labrum lesion of right shoulder, initial encounter; R91.1 Solitary pulmonary nodule
CPT/HCPCS: 23350; 73201; 77002; J0171; Q9967